=== PATIENT | female | born 1950 | race Caucasian/White ===

== ENCOUNTER 2020-06-06 08:31 | Outpatient (CLI) | payer MEDICARE, SELFPAY ==
--- NOTE | 2020-06-06 08:39 | MM_ITS ---
WS: [id number] BILATERAL DIGITAL SCREENING MAMMOGRAM WITH CAD CLINICAL INFORMATION: SCREENING HISTORY: Screening mammogram. Bilateral breast soreness worse in the right COMPARISON: December 11, 2016 TECHNIQUE: Bilateral CC and MLO. FINDINGS: The breast are composed of extremely dense tissue, which can limit the detection of small underlying mass lesions. Partially obscured ovoid densities left breast may represent small cysts but technicall y indeterminate. These are posterior depth approximately 3:00 position and inferior medial quadrant. Ovoid densities measure 10 to 11 mm. RECOMMEND FURTHER EVALUATION LEFT BREAST WITH SPOT COMPRESSION VIEWS AND ULTRASOUND LEFT BREAST. A few punctate calcifications. Stable clustered calcifications left breast. Unremarkable right breas t. MM/[place] [id number] IMPRESSION: BI-RADS: 0-Incomplete: Need additional imaging evaluation FOLLOW UP: Need Additional Imaging
== END 2020-06-06 08:32 | disposition home or self-care (01) ==
LOC: RADSHAW 08:37
PROVIDERS: PCP Internal Medicine; Visit Provider Internal Medicine
DX: Z12.31 Encounter for screening mammogram for malignant neoplasm of breast (principal); R92.1 Mammographic calcification found on diagnostic imaging of breast
CPT/HCPCS: 77067

== ENCOUNTER 2020-07-06 09:36 | Outpatient (CLI) | payer MEDICARE, SELFPAY ==
--- NOTE | 2020-07-06 09:40 | US_ITS ---
WS: [id number] LEFT DIGITAL MAMMOGRAPHY WITH CAD CLINICAL INFORMATION: INCONCLUSIVE MAMMOGRAM COMPARISON: June 06, 2020 TECHNIQUE: 5 views of the left breast were obtained. FINDINGS: The left breast is composed of extremely dense tissue, which can limit the detection of small underly ing mass lesions. Again seen are partially obscured ovoid densities posterior depth left breast and i nferomedial quadrant. These measure 10 to 11 mm. Ultrasound is pending. Stable punctate and clustered calcifications. ULTRASOUND BREAST LEFT TECHNIQUE: Ultrasound left breast focused area of concern. CLINICAL INFORMATION: INCONCLUSIVE MAMMOGRAM COMPARISON: None. FINDINGS: Ultrasound left breast at the 3:00 position, 4:00, 11:00. Multiple hypoechoic complex cystic lesions the largest at the 11:00 position measuring 1.2 x 0.6 cm. A few internal septations in the 11:00 lesion. Additional smaller hypoechoic complex cysts at the 3:0 0 position measuring 5 to 7 mm. Additional hypoechoic lesion likely a complex cyst measuring 7.8 x 6.7 mm at the 3 to 4:00 position w ith internal echoes. FINDINGS ARE PROBABLY BENIGN AND RECOMMEND 6 MONTH FOLLOW-UP LEFT BREAST ULTRASOUND TO CONFIRM STAHERMINIO GONZALEZ. US/US breast LT limited* [id number] IMPRESSION: BI-RADS: 3-Probably Benign FOLLOW UP: 6 Month Follow-up
== END 2020-07-06 09:37 | disposition home or self-care (01) ==
LOC: RADSHAW 09:38
PROVIDERS: PCP Internal Medicine; Visit Provider Internal Medicine
DX: R92.2 Inconclusive mammogram (principal)
CPT/HCPCS: 76642; 77065

== ENCOUNTER 2022-03-12 13:32 | Outpatient (CLI) | payer MEDICARE, SELFPAY ==
--- NOTE | 2022-03-12 13:44 | MM_ITS ---
WS: [id number] BILATERAL 3D TOMOSYNTHESIS DIGITAL SCREENING MAMMOGRAPHY WITH CAD CLINICAL INFORMATION: SCREENING HISTORY: Screening mammogram. Six-month follow-up was recommended 2019. No imaging since 0 COMPARISON: June 06, 2020 and 07/06/20 TECHNIQUE: Bilateral CC and MLO views. FINDINGS: The breasts are composed of heterogeneous fibroglandular density tissue, which can limit the detectio n of small underlying mass lesions. Previously described ovoid nodular densities LEFT breast appear s imilar in appearance compared to previous. No new suspicious abnormalities. Similar-appearing punctat e and clustered calcifications. Recommend ultrasound LEFT breast to confirm stability of the previous ly described complex cystic and hypoechoic lesions MM/[place] [id number] IMPRESSION: BI-RADS: 0-Incomplete: Need additional imaging evaluation FOLLOW UP: Need Additional Imaging Recommend LEFT breast ultrasound.
== END 2022-03-12 13:33 | disposition home or self-care (01) ==
LOC: RAD 13:34
PROVIDERS: PCP Internal Medicine; Visit Provider Internal Medicine
DX: Z12.31 Encounter for screening mammogram for malignant neoplasm of breast (principal)
CPT/HCPCS: 77063; 77067

== ENCOUNTER 2022-04-25 15:24 | Outpatient (CLI) | payer MEDICARE, SELFPAY ==
--- NOTE | 2022-04-25 15:35 | US_ITS ---
WS: [id number] ULTRASOUND BREAST LEFT TECHNIQUE: Ultrasound left breast focused area of concern. CLINICAL INFORMATION: ABNORMAL MAMMO (US ONLY) COMPARISON: Ultrasound July 06 2020 FINDINGS: Again seen are multiple complex hypoechoic cystic lesions the largest 1100 position today measuring 5 .9 x 4.1 x 6.8 mm. Additional slightly complex cyst at 12:00 position measuring 3.7 x 2.4 x 4.8 mm wi th one or 2 septations. Additional 3 x 5 mm cyst at the 3:00 position. Complex lesion with internal echogenicity at the 3:00 position 1 cm from the nipple measuring 4.5 x 5 .6 x 0.7 mm. This appears similar to 2019 but technically indeterminate. Recommend 6 month follow-up with attention to this lesion. Incidental simple cyst at the 3:00 position. This measures 7 x 8 mm. Incidental ductal ectasia 3:00 p osition subareolar. No intraductal lesions. US/US breast LT limited* [id number] IMPRESSION: BI-RADS 3 probably benign FOLLOW UP: Recommend 6 month follow-up with particular attention to the complex lesion with internal echogenicity 3:00 position 1 cm from the nipple measurin g 4.5 x 5.6 x 0.7 mm. This likely represents a complex cyst but technically ind eterminate. Recommend 6 month follow-up ultrasound LEFT breast to confirm stabi lity.
== END 2022-04-25 15:25 | disposition home or self-care (01) ==
PROVIDERS: PCP Internal Medicine; Visit Provider Internal Medicine
DX: R92.8 Other abnormal and inconclusive findings on diagnostic imaging of breast (principal)
CPT/HCPCS: 76642

== ENCOUNTER 2022-06-28 06:04 | Emergency (ER) | payer MEDICARE, SELFPAY ==
[2022-06-28 06:06] VITALS: BP 142/91; PULSE 85; RESP 16; TEMP 36.6; O2SAT 97; BMI 28.2
--- NOTE | 2022-06-28 06:26 | ED_ITS ---
HPI - Fall General: Chief Complaint: Fall Stated Complaint: fall Time Seen by Provider: 06/28/22 06:08 Source: patient Mode of arrival: ambulatory History of Present Illness: 71-year-old female presents emergency room complaining of low back pain. States she slipped and fell lightly over 4 days ago and did not seem to bother her too bad and then she twisted wrong yesterday and pain became more severe. She has not had any hematuria up to this point no lightheadedness or dizziness she refers the pain to the left paraspinal muscles mid lumbar region. No fever sweats chills no dysuria urgency or frequency. MD complaint: fall Onset (ago): day(s) (4) Fall from: standing Place fall occurred: other ([place]) Loss of consciousness: None Prolonged down time: no Symptoms prior to fall: none Context: tripped/slipped Location of injury: back Quality: sharp Associated symptoms-after fall: Reports difficulty walking; Denies abdominal pain, chest pain, confusion, headache(s), hematuria, lightheadedness, neck pain, numbness, short of breath, vertigo or weakness Review of Systems Const: Denies: fever(s), chills, body aches, change in appetite, fatigue or malaise ENMT: Denies: throat pain, ear or mastoid pain, nasal discharge or nasal congestion Card: Denies: chest pain or lightheadedness Resp: Denies: dyspnea, productive cough or non-productive cough GI: Denies: abdominal pain, nausea or vomiting : Denies: flank pain, difficulty voiding, dysuria, urinary frequency, urinary urgency or hematuria Musc: Reports: back pain; Denies: neck pain Skin/Breast: Denies: rash or pruritus Neuro: Reports: difficulty walking; Denies: headache(s), vertigo or confusion PFSH ED PFSH: Medical History (Updated 06/28/22 @ 07:49 by Bala Medellin DO) No significant past medical history Surgical History (Updated 06/28/22 @ 06:50 by Bala Medellin DO) No pertinent past surgical history Social History (Updated 06/28/22 @ 06:50 by Bala Medeliln DO) Smoking and tobacco status: never smoked Alcohol intake: never Physical Exam Const: GENERAL APPEARANCE: cooperative and comfortable ORIENTATION/CONSCIOUSNESS: Yes awake, Yes oriented to person, Yes oriented to place and Yes oriented to time HENMT: COMMON NORMALS: normocephalic, atraumatic and hearing grossly normal bilaterally HEAD & SCALP: normocephalic and atraumatic Resp: COMMON NORMALS: normal respiratory effort, No retractions, No use of accessory muscles and clear to auscultation bilaterally AUSCULTATION: clear to auscultation bilaterally Cardio: COMMON NORMALS: regular rate, regular rhythm and No murmurs present (Cardio) RATE: regular rate RHYTHM: regular rhythm GI: COMMON NORMALS: Soft to palpation and No hepatosplenomegaly present AUSCULTATION: Yes normoactive bowel sounds PALPATION: Yes Soft to palpation, No Tenderness to palpation present (GI), No Guarding due to palpation present (GI) and Yes No hepatosplenomegaly present : COMMON NORMALS: Yes no CVA tenderness BLADDER/KIDNEY EXAM: Yes no CVA tenderness Back/Pelvis: COMMON NORMALS: no CVA tenderness OTHER: Tenderness left paraspinal muscles no ecchymosis no abrasions no tenderness at the CVA bilaterally. Extremity: COMMON NORMALS: normal to inspection, capillary refill normal, no clubbing, cyanosis or edema, no calf tenderness and no pedal edema Neuro: SENSORIUM/ORIENTATION: Yes oriented to person, Yes oriented to place and Yes oriented to time Skin: COMMON NORMALS: no rashes or lesions noted GENERAL SKIN EXAM: no rashes or lesions noted Course Vital Signs: Vital signs: Vital Signs Temperature 97.9 F 06/28/22 06:06 Pulse Rate 82 06/28/22 08:00 Respiratory Rate 17 06/28/22 06:30 Blood Pressure 122/74 06/28/22 08:00 Pulse Oximetry 98 06/28/22 08:00 Oxygen Delivery Me thod 06/28/22 06:29 MDM - Fall Medical Decision Making Labs and imaging reviewed note UA is negative hemoglobin is good exam treat for musculoskeletal low back pain. No sign of renal injury based on no evidence of hematuria and normal kidney function follow-up with primary care as needed she is tender more along the paraspinal muscles in the lower lumbar region Medical Records I reviewed the patient's medical records. Lab Data I reviewed the patient's lab results. : 06/28/22 06:30 06/28/22 06:30 Radiology Impressions Lumbar Spine X-Ray 06/28/22 06:33 IMPRESSION: 1. No acute injury. 2. Degenerative changes of the lumbar spine. Laboratory Results WBC 6.7 10^3/uL (4.0-10.0) 06/28/22 06:30 RBC 4.72 10^6/uL (4.1-5.3) 06/28/22 06:30 Hgb 13.4 g/dL (11.5-15.3) 06/28/22 06:30 Hct 41.5 % (37.0-47.0) 06/28/22 06:30 MCV 87.9 fl (81-99) 06/28/22 06:30 MCH 28.4 pg (28.0-34.0) 06/28/22 06:30 MCHC 32.3 g/dL (30.0-36.0) 06/28/22 06:30 RDW 13.9 % (12.1-15.1) 06/28/22 06:30 Plt Count 220 10^3/cmm (130-400) 06/28/22 06:30 MPV 9.2 fL (7.4-10.4) 06/28/22 06:30 Neut % (Auto) 63.1 % 06/28/22 06:30 Lymph % (Auto) 25.8 % 06/28/22 06:30 [place] % (Auto) 7.6 % 06/28/22 06:30 Eos % (Auto) 2.7 % 06/28/22 06:30 Baso % (Auto) 0.4 % 06/28/22 06:30 Neut # (Auto) 4.23 10^3/uL (1.8-7.7) 06/28/22 06:30 Lymph # (Auto) 1.7 10^3/uL (0.8-4.8) 06/28/22 06:30 [place] # (Auto) 0.5 10^3/uL (0.2-0.9) 06/28/22 06:30 Eos # (Auto) 0.2 10^3/uL (0.0-0.8) 06/28/22 06:30 Baso # (Auto) 0.0 10^3/uL (0.0-0.1) 06/28/22 06:30 Nucleated RBC % (auto) 0 % 06/28/22 06:30 Nucleated RBCs # 0.0 /100WBC 06/28/22 06:30 Sodium 138 mmol/L (136-145) 06/28/22 06:30 Potassium 3.8 mmol/L (3.5-5.1) 06/28/22 06:30 Chloride 102 mmol/L (98-107) 06/28/22 06:30 Carbon Dioxide 24 mmol/L (22-29) 06/28/22 06:30 Anion Gap 15.8 (5-19) 06/28/22 06:30 BUN 13 mg/dL (8-23) 06/28/22 06:30 Creatinine 0.9 mg/dL (0.5-0.9) 06/28/22 06:30 GFR Calculation 62.1 mL/min (90-130) L 06/28/22 06:30 Glucose 124 mg/dL (65-115) H 06/28/22 06:30 Calculated Osmolality 288 mOsm/kg (285-295) 06/28/22 06:30 Calcium 9.9 mg/dL (8.5-10.5) 06/28/22 06:30 Total Bilirubin 0.4 mg/dL (0.15-1.2) 06/28/22 06:30 AST 17 U/L (0-32) 06/28/22 06:30 ALT 20 U/L (0-33) 06/28/22 06:30 Alkaline Phosphatase 80 U/L (35-105) 06/28/22 06:30 Total Protein 7.3 g/dL (6.6-8.7) 06/28/22 06:30 Albumin 4.5 g/dL (3.5-5.2) 06/28/22 06:30 Globulin 2.8 g/dL (1.3-4.6) 06/28/22 06:30 Urine Color Yellow (Yellow) 06/28/22 07:34 Urine Appearance Clear (CLEAR) 06/28/22 07:34 Urine pH 5 (5-7) 06/28/22 07:34 Ur Specific [place] 1.015 (1.005-1.030) 06/28/22 07:34 Urine Protein Neg (Negative) 06/28/22 07:34 Urine Glucose (UA) Norm (Normal) 06/28/22 07:34 Urine Ketones Negative (Negative) 06/28/22 07:34 Urine Blood Neg (Negative) 06/28/22 07:34 Urine Nitrate Negative (Negative) 06/28/22 07:34 Urine Bilirubin Neg (Negative) 06/28/22 07:34 Urine Urobilinogen Neg mg/dL (Negative) 06/28/22 07:34 Ur Leukocyte Esterase Negative (Negative) 06/28/22 07:34 Discharge Plan Discharge Patient Disposition: Home Clinical Impression: Lumbar back pain, Fall Condition: Stable Prescriptions: New prednisone 20 mg tablet 20 mg PO TID Qty: 15 0RF Rx Instructions: 1 p.o. 3 times daily x3 days, 1 p.o. twice daily x2 days, 1 p.o. daily x2 days diclofenac sodium 75 mg tablet,delayed release (DR/EC) 75 mg PO Q12H PRN (Reason: pain) Qty: 20 0RF tizanidine 4 mg capsule 4 mg PO Q6H PRN (Reason: muscle spasticity) Qty: 20 0RF Rx Instructions: do not exceed 3 doses per 24 hrs Discharge Orders: Discharge ED (Routine); Ordered 06/28/22 Ordered By: Bala Medellin Referrals: Thuan Talley DO [Primary Care Provider] - Discharge Diet: Usual diet Discharge Activity: Resume usual activity Patient Instructions: Opioid Safety, Pain Management Activity Restrictions/Additional Instructions: Use prescribed medications as needed for relief of symptoms. Start prednisone taper tomorrow. If not improving follow-up with your primary care physician. 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
[2022-06-28 06:29] VITALS: BP 163/85; PULSE 76; RESP 17; O2SAT 99
[2022-06-28 06:30] VITALS: RESP 17; O2SAT 99
[2022-06-28] MEDS: ondansetron 2 mg/ML SDV 2 mL 4 MG IVP (06:30)
[2022-06-28] MEDS: morphine 4 mg/mL SDV 1 mL IVP (06:30)
[2022-06-28] MEDS: ketorolac 30 mg/mL INJ IVP (06:30)
--- NOTE | 2022-06-28 06:33 | XRR_ITS ---
PROCEDURE INFORMATION: Exam: XR Lumbosacral Spine Exam date and time: 06/28/2022 6:53 AM Age: 71 years old Clinical indication: Injury or trauma; Fall; Blunt trauma (contusions or hematomas) TECHNIQUE: Imaging protocol: Radiologic exam of the lumbosacral spine. Views: 2 or 3 views. COMPARISON: [place] [id number] 07/06/2020 9:59 AM FINDINGS: Bones/joints: No spine curvature seen. The normal lumbar lordosis is maintained, with grade 1 anterolisthesis of L4. No fracture identified. Vertebral body heights are well preserved. There is multilevel degenerative changes, manifested by intervertebral disc space narrowing, endplate osteophytes and facet joint arthrosis. Soft tissues: Unremarkable. XR/XR lumbar spine 2-3V* [id number] IMPRESSION: 1. No acute injury. 2. Degenerative changes of the lumbar spine.
[2022-06-28 06:39] LABS: Basophils % 0.4 %; Eosinophils # 0.2 10^3/uL (0.0-0.8); Eosinophils % 2.7 %; Hematocrit 41.5 % (37.0-47.0); Hemoglobin 13.4 g/dL (11.5-15.3); Lymphocytes # 1.7 10^3/uL (0.8-4.8); Lymphocytes % 25.8 %; Mean Corpuscular HGB Conc 32.3 g/dL (30.0-36.0); Mean Corpuscular Hemoglobin 28.4 pg (28.0-34.0); Mean Corpuscular Volume 87.9 fl (81-99); Mean Platelet Volume 9.2 fL (7.4-10.4); Monocytes # 0.5 10^3/uL (0.2-0.9); Monocytes % 7.6 %; Neutrophils # 4.23 10^3/uL (1.8-7.7); Neutrophils % 63.1 %; Nucleated Red Blood Cells % 0 %; Platelet Count 220 10^3/cmm (130-400); Red Blood Count 4.72 10^6/uL (4.1-5.3); Red Cell Distribution Width 13.9 % (12.1-15.1); White Blood Count 6.7 10^3/uL (4.0-10.0)
[2022-06-28 07:00] LABS: Alanine Aminotransferase 20 U/L (0-33); Albumin Level 4.5 g/dL (3.5-5.2); Alkaline Phosphatase 80 U/L (35-105); Anion Gap 15.8 (5-19); Aspartate Amino Transferase 17 U/L (0-32); Blood Urea Nitrogen 13 mg/dL (8-23); Calcium 9.9 mg/dL (8.5-10.5); Carbon Dioxide 24 mmol/L (22-29); Chloride 102 mmol/L (98-107); Globulin 2.8 g/dL (1.3-4.6); Glomerular Filtration Rate 62.1 mL/min (90-130); Glucose 124 mg/dL (65-115); Osmolality Calculated 288 mOsm/kg (285-295); Potassium 3.8 mmol/L (3.5-5.1); Sodium 138 mmol/L (136-145); Total Bilirubin 0.4 mg/dL (0.15-1.2); Total Protein 7.3 g/dL (6.6-8.7)
[2022-06-28 07:40] LABS: Add Urine Microscopic? NO; Charge for UA Resulting for Rev
[2022-06-28 07:43] LABS: Bilirubin Urine Neg (Negative); Blood Urine Neg (Negative); Glucose Urine UA Norm (Normal); Ketones Urine Negative (Negative); Leukocyte Esterase Urine Negative (Negative); Nitrate Urine Negative (Negative); Protein Urine Neg (Negative); Specific Gravity, Urine 1.015 (1.005-1.030); Urine Appearance Clear (CLEAR); Urine Color Yellow (Yellow); Urobilinogen Urine Neg (Negative); pH Urine 5 (5-7)
[2022-06-28 08:00] VITALS: BP 122/74; PULSE 82; O2SAT 98
== END 2022-06-28 08:01 | disposition home or self-care (01) ==
PROVIDERS: Emergency Provider Family Medicine; PCP Internal Medicine
DX: M54.50 Low back pain, unspecified (principal); W01.0XXA Fall on same level from slipping, tripping and stumbling without subsequent striking against object, initial encounter
CPT/HCPCS: 72100; 80053; 81003; 85025; 96374; 96375; 99284; J1885; J2270; J2405

== ENCOUNTER 2022-06-29 16:09 | Emergency (ER) | payer MEDICARE, SELFPAY ==
[2022-06-29 16:16] VITALS: BP 157/90; PULSE 89; RESP 16; TEMP 37.4; O2SAT 96; BMI 28.2
--- NOTE | 2022-06-29 17:33 | ED_ITS ---
HPI - GI Bleed General: Chief complaint: GI Bleed Stated complaint: rectal bleeding Time Seen by Provider: 06/29/22 17:33 History of Present Illness: Ms. Gao is a 71-year-old lady without significant past medical history presents to the emergency department due to concern for bright red blood per rectum. She reports falling a number of days ago primarily landing on her right side and flank. She was not initially evaluated however had x-rays performed yesterday when her pain worsened. This morning she went to urinate and noticed some blood on the tissue when she wiped though does not think this was from her urine. She does not recall straining to defecate and did not have pain associated with this. She subsequently had a normal bowel movement. Had a colonoscopy approximately 4 years ago which was reportedly unremarkable. No history of similar. Abdominal pain/flank pain continues. No other specific changes in health, exacerbating, or alleviating factors identified. Onset (ago): day(s) Severity: moderate Exacerbating factors: movement Associated symptoms: Reports abdominal pain; Denies easy bruising, epistaxis, other bleeding, syncope or vomiting Review of Systems General: Reports: 10 or more systems reviewed and unremarkable except in HPI and below ENMT: Denies: epistaxis Card: Denies: syncope GI: Reports: abdominal pain; Denies: vomiting Laureano/Lymph: Denies: easy bruising [facility] ED PFSH: Medical History No significant past medical history Surgical History No pertinent past surgical history Social History Smoking and tobacco status: never smoked Alcohol intake: never Physical Exam Const: COMMON NORMALS: alert GENERAL APPEARANCE: cooperative and well developed HENMT: COMMON NORMALS: normocephalic and atraumatic HEAD & SCALP: normocephalic and atraumatic Eye: COMMON NORMALS: conjunctivae normal CONJUNCTIVA: Yes conjunctivae normal SCLERA: sclerae normal Neck/C-Spine: COMMON NORMALS: supple GENERAL: Yes trachea midline Resp: COMMON NORMALS: clear to auscultation bilaterally EFFORT & INSPECTION: Yes able to speak in complete sentences AUSCULTATION: clear to auscultation bilaterally Cardio: COMMON NORMALS: regular rate and regular rhythm RATE: regular rate RHYTHM: regular rhythm GI: COMMON NORMALS: Soft to palpation PALPATION: Yes Soft to palpation and No Tenderness to palpation present (GI) Extremity: GENERAL: Yes normal exam except as noted and No edema Neuro: COMMON NORMALS: moves all extremities SENSORIUM/ORIENTATION: Yes alert and No Orientation impaired Psych: COMMON NORMALS: mental status grossly normal and Normal thought process present THOUGHT PROCESS: Normal thought process present Course Vital Signs: Vital signs: Vital Signs Temperature 99.4 F 06/29/22 16:16 Pulse Rate 77 06/29/22 20:05 Respiratory Rate 18 06/29/22 20:05 Blood Pressure 148/87 06/29/22 20:05 Pulse Oximetry 92 06/29/22 20:05 Oxygen Delivery Me thod 06/29/22 18:29 MDM - GI Bleed Medical Decision Making 71-year-old lady presenting after fall with concern over 1 episode of rectal bleeding. Vitals are satisfactory. Hemoglobin normal. No significant metabolic abnormality. CT with right L1 and L2 transverse process fractures. No other acute pathology identified to explain symptoms. Rectal exam performed with gate attendant present. Guaiac negative with hemorrhoids present. Satisfactory for outpatient management. Return precautions and follow-up plan discussed. Medical Records I reviewed the patient's medical records. Lab Data I reviewed the patient's lab results. : 06/29/22 18:05 06/29/22 18:05 Radiology Impressions Abdomen/Pelvis CT 06/29/22 17:52 IMPRESSION: 1. Right L1 and L2 transverse process fractures. 2. Hepatic steatosis. 3. Liver somewhat enlarged. 4. Right kidney cyst, negative for follow-up advised. 5. Prominent fluid in the small bowel without dilation may reflect an enteritis. COMMENTS: Consistent with the [place] [employer]'s Incidental Findings Committee white paper (J Am Shawanda Radiol 2018): Any incidental renal lesion less than 1 cm or classified as too small to characterize, or any incidental cystic renal lesion characterized as simple-appearing, is likely benign. No follow-up imaging is recommended for these lesions per consensus recommendations based on imaging criteria. Laboratory Results WBC 7.2 10^3/uL (4.0-10.0) 06/29/22 18:05 RBC 4.81 10^6/uL (4.1-5.3) 06/29/22 18:05 Hgb 13.5 g/dL (11.5-15.3) 06/29/22 18:05 Hct 41.5 % (37.0-47.0) 06/29/22 18:05 MCV 86.3 fl (81-99) 06/29/22 18:05 MCH 28.1 pg (28.0-34.0) 06/29/22 18:05 MCHC 32.5 g/dL (30.0-36.0) 06/29/22 18:05 RDW 13.8 % (12.1-15.1) 06/29/22 18:05 Plt Count 246 10^3/cmm (130-400) 06/29/22 18:05 MPV 9.1 fL (7.4-10.4) 06/29/22 18:05 Neut % (Auto) 89.7 % 06/29/22 18:05 Lymph % (Auto) 8.5 % 06/29/22 18:05 [place] % (Auto) 1.5 % 06/29/22 18:05 Eos % (Auto) 0.0 % 06/29/22 18:05 Baso % (Auto) 0.0 % 06/29/22 18:05 Neut # (Auto) 6.42 10^3/uL (1.8-7.7) 06/29/22 18:05 Lymph # (Auto) 0.6 10^3/uL (0.8-4.8) L 06/29/22 18:05 [place] # (Auto) 0.1 10^3/uL (0.2-0.9) L 06/29/22 18:05 Eos # (Auto) 0.0 10^3/uL (0.0-0.8) 06/29/22 18:05 Baso # (Auto) 0.0 10^3/uL (0.0-0.1) 06/29/22 18:05 Nucleated RBC % (auto) 0 % 06/29/22 18:05 Nucleated RBCs # 0.0 /100WBC 06/29/22 18:05 PT 12.90 SECONDS (12.1-14.9) 06/29/22 18:05 INR 0.94 (0.8-1.2) 06/29/22 18:05 Sodium 140 mmol/L (136-145) 06/29/22 18:05 Potassium 4.6 mmol/L (3.5-5.1) 06/29/22 18:05 Chloride 105 mmol/L (98-107) 06/29/22 18:05 Carbon Dioxide 24 mmol/L (22-29) 06/29/22 18:05 Anion Gap 15.6 (5-19) 06/29/22 18:05 BUN 13 mg/dL (8-23) 06/29/22 18:05 Creatinine 0.7 mg/dL (0.5-0.9) 06/29/22 18:05 GFR Calculation 83.0 mL/min (90-130) L 06/29/22 18:05 Glucose 129 mg/dL (65-115) H 06/29/22 18:05 Calculated Osmolality 292 mOsm/kg (285-295) 06/29/22 18:05 Calcium 10.3 mg/dL (8.5-10.5) 06/29/22 18:05 Total Bilirubin 0.3 mg/dL (0.15-1.2) 06/29/22 18:05 AST 19 U/L (0-32) 06/29/22 18:05 ALT 19 U/L (0-33) 06/29/22 18:05 Alkaline Phosphatase 79 U/L (35-105) 06/29/22 18:05 Total Protein 7.4 g/dL (6.6-8.7) 06/29/22 18:05 Albumin 5.0 g/dL (3.5-5.2) 06/29/22 18:05 Globulin 2.4 g/dL (1.3-4.6) 06/29/22 18:05 Discharge Plan Discharge Patient Disposition: Home Clinical Impression: BRBPR (bright red blood per rectum), Fracture of transverse process of lumbar vertebra Condition: Stable Prescriptions: New oxycodone 5 mg tablet 5 mg PO Q4H PRN (Reason: pain) Qty: 10 0RF No Action prednisone 20 mg tablet 20 mg PO TID Qty: 15 0RF Rx Instructions: 1 p.o. 3 times daily x3 days, 1 p.o. twice daily x2 days, 1 p.o. daily x2 days diclofenac sodium 75 mg tablet,delayed release (DR/EC) 75 mg PO Q12H PRN (Reason: pain) Qty: 20 0RF tizanidine 4 mg capsule 4 mg PO Q6H PRN (Reason: muscle spasticity) Qty: 20 0RF Rx Instructions: do not exceed 3 doses per 24 hrs Discharge Orders: Discharge ED (Routine); Ordered 06/29/22 Ordered By: Kirk Pearl Referrals: Thuan Talley, [Primary Care Provider] - Discharge Diet: Usual diet Discharge Activity: Increase activity as tolerated Patient Instructions: Hemorrhoids (ED), Rectal Bleeding (ED), Transverse Process Fracture (ED) Activity Restrictions/Additional Instructions: Thank you for visiting the emergency department. You were seen and evaluated for blood per rectum. The exact cause of your symptoms is unclear though may be related to hemorrhoidal bleeding. You were noted to have transverse process fractures likely from your fall at the L1 and L2 level on the right. I will give you oxycodone for severe pain however please also use Tylenol and other treatments. Be cautious using ibuprofen given your bleeding per rectum. Please follow-up with your primary care provider. Return to the emergency department for worsening symptoms or anything else that you are concerned about a feel needs emergency department evaluation. Coding Level of Care Code ED Distributing Clerk for Vero Fwlisa Exam Comprehensive
[2022-06-29 17:36] VITALS: BP 147/91; PULSE 77; RESP 16; O2SAT 96
--- NOTE | 2022-06-29 17:52 | CTR_ITS ---
PROCEDURE INFORMATION: Exam: CT Abdomen And Pelvis With Contrast Exam date and time: 06/29/2022 6:43 PM Age: 71 years old Clinical indication: Injury or trauma; Fall; Blunt; Ruq; Injury date: 06/19/2022; Additional info: R flank pain after fall, brbpr TECHNIQUE: Imaging protocol: Computed tomography of the abdomen and pelvis with contrast. Radiation optimization: All CT scans at this facility use at least one of these dose optimization techniques: automated exposure control; mA and/or kV adjustment per patient size (includes targeted exams where dose is matched to clinical indication); or iterative reconstruction. Contrast material: OMNIPAQUE 350; Contrast volume: 80 ml; Contrast route: INTRAVENOUS (IV); COMPARISON: CR XR lumbar spine 2-3V* [id number] 06/28/2022 6:53 AM RADIATION DOSE METRICS: Total DLP (mGy-cm): 654.61 FINDINGS: Liver: Hepatic steatosis. Liver somewhat enlarged. Gallbladder and bile ducts: Normal. No calcified stones. No ductal dilation. Pancreas: Normal. No ductal dilation. Spleen: Normal. No splenomegaly. Adrenal glands: Normal. No mass. Kidneys and ureters: Right kidney cyst, negative for follow-up advised. Stomach and bowel: Prominent fluid in the small bowel without dilation may reflect an enteritis. Appendix: No evidence of appendicitis. Intraperitoneal space: Unremarkable. No free air. No significant fluid collection. Vasculature: Unremarkable. No abdominal aortic aneurysm. Lymph nodes: Unremarkable. No enlarged lymph nodes. Urinary bladder: Unremarkable as visualized. Reproductive: Unremarkable as visualized. Bones/joints: Right L1 and L2 transverse process fractures. Soft tissues: Unremarkable. CT/CT abdomen pelvis w con* [id number] IMPRESSION: 1. Right L1 and L2 transverse process fractures. 2. Hepatic steatosis. 3. Liver somewhat enlarged. 4. Right kidney cyst, negative for follow-up advised. 5. Prominent fluid in the small bowel without dilation may reflect an enteritis. COMMENTS: Consistent with the [place] [employer]'s Incidental Findings Committee white paper (J Am Shawanda Radiol 2018): Any incidental renal lesion less than 1 cm or classified as too small to characterize, or any incidental cystic renal lesion characterized as simple-appearing, is likely benign. No follow-up imaging is recommended for these lesions per consensus recommendations based on imaging criteria.
[2022-06-29 18:12] LABS: Hematocrit 41.5 % (37.0-47.0); Hemoglobin 13.5 g/dL (11.5-15.3); Lymphocytes # 0.6 10^3/uL (0.8-4.8); Lymphocytes % 8.5 %; Mean Corpuscular HGB Conc 32.5 g/dL (30.0-36.0); Mean Corpuscular Hemoglobin 28.1 pg (28.0-34.0); Mean Corpuscular Volume 86.3 fl (81-99); Mean Platelet Volume 9.1 fL (7.4-10.4); Monocytes # 0.1 10^3/uL (0.2-0.9); Monocytes % 1.5 %; Neutrophils # 6.42 10^3/uL (1.8-7.7); Neutrophils % 89.7 %; Nucleated Red Blood Cells % 0 %; Platelet Count 246 10^3/cmm (130-400); Red Blood Count 4.81 10^6/uL (4.1-5.3); Red Cell Distribution Width 13.8 % (12.1-15.1); White Blood Count 7.2 10^3/uL (4.0-10.0)
[2022-06-29 18:27] LABS: INR 0.94 (0.8-1.2)
[2022-06-29 18:29] VITALS: BP 137/83; PULSE 79; RESP 16; O2SAT 97
[2022-06-29 18:31] LABS: Alanine Aminotransferase 19 U/L (0-33); Alkaline Phosphatase 79 U/L (35-105); Anion Gap 15.6 (5-19); Aspartate Amino Transferase 19 U/L (0-32); Blood Urea Nitrogen 13 mg/dL (8-23); Calcium 10.3 mg/dL (8.5-10.5); Carbon Dioxide 24 mmol/L (22-29); Chloride 105 mmol/L (98-107); Creatinine Clr Calc Pharmacy 70.5462; Globulin 2.4 g/dL (1.3-4.6); Glucose 129 mg/dL (65-115); Osmolality Calculated 292 mOsm/kg (285-295); Potassium 4.6 mmol/L (3.5-5.1); Sodium 140 mmol/L (136-145); Total Bilirubin 0.3 mg/dL (0.15-1.2); Total Protein 7.4 g/dL (6.6-8.7)
[2022-06-29] MEDS: iohexol 350 mg/mL 100 mL Btl IV (18:46)
--- NOTE | 2022-06-29 19:04 | PC.NURSE ---
Report given to JOSSELIN Palacio
[2022-06-29 20:05] VITALS: BP 148/87; PULSE 77; RESP 18; O2SAT 92
== END 2022-06-29 20:07 | disposition home or self-care (01) ==
PROVIDERS: Emergency Medicine; Emergency Provider Emergency Medicine; PCP Internal Medicine
DX: K62.5 Hemorrhage of anus and rectum (principal); S32.018A Other fracture of first lumbar vertebra, initial encounter for closed fracture; S32.028A Other fracture of second lumbar vertebra, initial encounter for closed fracture; W19.XXXA Unspecified fall, initial encounter
CPT/HCPCS: 36415; 74177; 80053; 85025; 85610; 99285; Q9967

== ENCOUNTER 2022-11-27 03:45 | Emergency (ER) | payer MEDICARE, SELFPAY ==
--- NOTE | 2022-11-27 03:46 | ECG_ITS ---
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 [id number] f
--- NOTE | 2022-11-27 03:46 | XRR_ITS ---
PROCEDURE INFORMATION: Exam: XR Chest Exam date and time: 11/27/2022 3:53 AM Age: 72 years old Clinical indication: Pain; Chest pressure; Patient HX: C/O chest heaviness x 2 days. Hypertensive on monitor. ; Additional info: Cp TECHNIQUE: Imaging protocol: Radiologic exam of the chest. Views: 1 view. COMPARISON: CT abdomen pelvis w con* [id number] 06/29/2022 6:43 PM FINDINGS: Lungs: A 1 cm nodule projects over the upper right lung. Otherwise, no focal airspace consolidation. Pleural spaces: Unremarkable. No pleural effusion. No pneumothorax. Heart/Mediastinum: Unremarkable. No cardiomegaly. Bones/joints: Unremarkable. XR/XR chest 1V portable [id number] IMPRESSION: A 1 cm nodule projects over the upper right lung. Recommend nonemergent CT chest for further evaluation.
--- NOTE | 2022-11-27 03:51 | ED_ITS ---
HPI - Chest Pain General: Chief Complaint: Dizziness Stated Complaint: possible heart attack?, cold Time Seen by Provider: 11/27/22 03:46 Source: patient Mode of arrival: ambulatory Limitations: no limitations History of Present Illness: 72-year-old female states she has been having a weird sensation in her chest since midnight she is having hard time describing it she said she feels like she is having electrical impulses and feels cold she states she also feels very anxious she denies any pain currently denies any shortness of breath denies any nausea or diaphoresis. She denies any worsening proved factors no history of heart disease. Associated symptoms: Deny abdominal pain, dyspnea, fever(s), nausea or vomiting Review of Systems Const: Denies: fever(s), chills, body aches or change in appetite Eyes: Denies: blurry vision or eye discomfort ENMT: Denies: throat pain or dental pain Card: Reports: chest pain Resp: Denies: dyspnea GI: Denies: abdominal pain, nausea, vomiting or diarrhea : Denies: dysuria Musc: Denies: neck pain or back pain Skin/Breast: Denies: rash Neuro: Denies: headache(s) Psych: Denies: depression Laureano/Lymph: Denies: easy bruising All/Imm: Denies: urticaria PFSH ED PFSH: Medical History No significant past medical history Surgical History No pertinent past surgical history Social History Smoking and tobacco status: never smoked Alcohol intake: never Physical Exam Const: COMMON NORMALS: no acute distress, patient oriented x3 and healthy appearing HENMT: COMMON NORMALS: normocephalic and atraumatic HEAD & SCALP: normocephalic and atraumatic Eye: COMMON NORMALS: Equal, round and reactive pupils present and EOMs intact bilaterally PUPIL: Yes Equal, round and reactive pupils present Neck/C-Spine: COMMON NORMALS: full ROM and supple Chest: COMMONS NORMALS: normal inspection of the chest and normal palpation of entire chest wall Resp: COMMON NORMALS: normal respiratory effort, No retractions, No use of accessory muscles and clear to auscultation bilaterally AUSCULTATION: clear to auscultation bilaterally Cardio: COMMON NORMALS: regular rate, regular rhythm and No murmurs present (Cardio) RATE: regular rate RHYTHM: regular rhythm GI: COMMON NORMALS: Normal to inspection, nondistended, normoactive bowel sounds present, Soft to palpation, non-tender and no masses PALPATION: Yes Soft to palpation Extremity: COMMON NORMALS: normal to inspection and full ROM Neuro: COMMON NORMALS: patient oriented x3, moves all extremities and no focal motor deficits Psych: COMMON NORMALS: mental status grossly normal, Normal thought process present and cooperative THOUGHT PROCESS: Normal thought process present Skin: COMMON NORMALS: no rashes or lesions noted and no wounds GENERAL SKIN EXAM: no rashes or lesions noted Course Vital Signs: Vital signs: Vital Signs Temperature 98.6 F 11/27/22 03:55 Pulse Rate 70 11/27/22 06:10 Respiratory Rate 16 11/27/22 06:10 Blood Pressure 109/68 11/27/22 06:10 Pulse Oximetry 97 11/27/22 06:10 Oxygen Delivery Me thod 11/27/22 03:55 MDM - Chest Pain Medical Decision Making Patient presents for chest pain that is atypical in nature her initial and repeat troponin are normal x-rays normal she is no signs of acute coronary syndrome she is stable for discharge she is to follow-up with her PCP and return if worsening. Lab Data 11/27/22 03:55 11/27/22 03:55 Radiology Impressions Chest X-Ray 11/27/22 03:46 IMPRESSION: A 1 cm nodule projects over the upper right lung. Recommend nonemergent CT chest for further evaluation. Laboratory Results WBC 5.4 10^3/uL (4.0-10.0) 11/27/22 03:55 RBC 4.92 10^6/uL (4.1-5.3) 11/27/22 03:55 Hgb 13.5 g/dL (11.5-15.3) 11/27/22 03:55 Hct 42.0 % (37.0-47.0) 11/27/22 03:55 MCV 85.4 fl (81-99) 11/27/22 03:55 MCH 27.4 pg (28.0-34.0) L 11/27/22 03:55 MCHC 32.1 g/dL (30.0-36.0) 11/27/22 03:55 RDW 13.3 % (12.1-15.1) 11/27/22 03:55 Plt Count 214 10^3/cmm (130-400) 11/27/22 03:55 MPV 9.1 fL (7.4-10.4) 11/27/22 03:55 Neut % (Auto) 58.0 % 11/27/22 03:55 Lymph % (Auto) 29.1 % 11/27/22 03:55 [place] % (Auto) 9.5 % 11/27/22 03:55 Eos % (Auto) 3.0 % 11/27/22 03:55 Baso % (Auto) 0.4 % 11/27/22 03:55 Neut # (Auto) 3.11 10^3/uL (1.8-7.7) 11/27/22 03:55 Lymph # (Auto) 1.6 10^3/uL (0.8-4.8) 11/27/22 03:55 [place] # (Auto) 0.5 10^3/uL (0.2-0.9) 11/27/22 03:55 Eos # (Auto) 0.2 10^3/uL (0.0-0.8) 11/27/22 03:55 Baso # (Auto) 0.0 10^3/uL (0.0-0.1) 11/27/22 03:55 Nucleated RBC % (auto) 0 % 11/27/22 03:55 Nucleated RBCs # 0.0 /100WBC 11/27/22 03:55 PT 13.50 SECONDS (12.1-14.9) 11/27/22 03:55 INR 1.00 (0.8-1.2) 11/27/22 03:55 Sodium 136 mmol/L (136-145) 11/27/22 03:55 Potassium 3.7 mmol/L (3.5-5.1) 11/27/22 03:55 Chloride 100 mmol/L (98-107) 11/27/22 03:55 Carbon Dioxide 19 mmol/L (22-29) L 11/27/22 03:55 Anion Gap 20.7 (5-19) H 11/27/22 03:55 BUN 9 mg/dL (8-23) 11/27/22 03:55 Creatinine 0.8 mg/dL (0.5-0.9) 11/27/22 03:55 GFR Calculation 70.9 mL/min (90-130) L 11/27/22 03:55 Glucose 175 mg/dL (65-115) H 11/27/22 03:55 Calculated Osmolality 285 mOsm/kg (285-295) 11/27/22 03:55 Calcium 9.4 mg/dL (8.5-10.5) 11/27/22 03:55 Total Bilirubin 0.5 mg/dL (0.15-1.2) 11/27/22 03:55 AST 24 U/L (0-32) 11/27/22 03:55 ALT 22 U/L (0-33) 11/27/22 03:55 Alkaline Phosphatase 86 U/L (35-105) 11/27/22 03:55 Troponin T Baseline 6 ng/L (0-10) 11/27/22 03:55 Troponin T 120 Minute 6.00 ng/L (0-10) 11/27/22 05:32 Delta Troponin T 0 ABS# (0-10) 11/27/22 05:32 Total Protein 6.9 g/dL (6.6-8.7) 11/27/22 03:55 Albumin 4.5 g/dL (3.5-5.2) 11/27/22 03:55 Globulin 2.4 g/dL (1.3-4.6) 11/27/22 03:55 Lipase 37 U/L (13-60) 11/27/22 03:55 Discharge Plan Discharge Patient Disposition: Home Clinical Impression: Chest pain Condition: Stable Prescriptions: No Action oxycodone 5 mg tablet 5 mg PO Q4H PRN (Reason: pain) Qty: 10 0RF prednisone 20 mg tablet 20 mg PO TID Qty: 15 0RF Rx Instructions: 1 p.o. 3 times daily x3 days, 1 p.o. twice daily x2 days, 1 p.o. 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
[2022-11-27 03:53] VITALS: BMI 29.8
[2022-11-27 03:55] VITALS: BP 171/101; PULSE 77; RESP 18; TEMP 37; O2SAT 100
[2022-11-27] MEDS: aspirin 81 mg Chew Tablet 324 MG PO (03:58)
[2022-11-27] MEDS: LORazepam 2 mg/mL INJ 1 mL 1 MG IVP (03:59)
[2022-11-27 04:00] LABS: Basophils % 0.4 %; Eosinophils # 0.2 10^3/uL (0.0-0.8); Hemoglobin 13.5 g/dL (11.5-15.3); Lymphocytes # 1.6 10^3/uL (0.8-4.8); Lymphocytes % 29.1 %; Mean Corpuscular HGB Conc 32.1 g/dL (30.0-36.0); Mean Corpuscular Hemoglobin 27.4 pg (28.0-34.0); Mean Corpuscular Volume 85.4 fl (81-99); Mean Platelet Volume 9.1 fL (7.4-10.4); Monocytes # 0.5 10^3/uL (0.2-0.9); Monocytes % 9.5 %; Neutrophils # 3.11 10^3/uL (1.8-7.7); Nucleated Red Blood Cells % 0 %; Platelet Count 214 10^3/cmm (130-400); Red Blood Count 4.92 10^6/uL (4.1-5.3); Red Cell Distribution Width 13.3 % (12.1-15.1); White Blood Count 5.4 10^3/uL (4.0-10.0)
[2022-11-27 04:19] LABS: Troponin(5th) Baseline 6 ng/L (0-10)
[2022-11-27 04:21] LABS: Alanine Aminotransferase 22 U/L (0-33); Albumin Level 4.5 g/dL (3.5-5.2); Alkaline Phosphatase 86 U/L (35-105); Aspartate Amino Transferase 24 U/L (0-32); Blood Urea Nitrogen 9 mg/dL (8-23); Calcium 9.4 mg/dL (8.5-10.5); Carbon Dioxide 19 mmol/L (22-29); Chloride 100 mmol/L (98-107); Creatinine Clr Calc Pharmacy 71.4269; Globulin 2.4 g/dL (1.3-4.6); Glomerular Filtration Rate 70.9 mL/min (90-130); Glucose 175 mg/dL (65-115); Lipase 37 U/L (13-60); Osmolality Calculated 285 mOsm/kg (285-295); Sodium 136 mmol/L (136-145); Total Bilirubin 0.5 mg/dL (0.15-1.2); Total Protein 6.9 g/dL (6.6-8.7)
[2022-11-27 04:28] LABS: Anion Gap 20.7 (5-19); Potassium 3.7 mmol/L (3.5-5.1)
[2022-11-27 05:02] VITALS: BP 117/71; PULSE 67; RESP 18; O2SAT 94
[2022-11-27 05:36] VITALS: BP 120/82; PULSE 64; RESP 26; O2SAT 95
[2022-11-27 05:58] LABS: Troponin 5 2HR Delta 0 ABS# (0-10)
[2022-11-27 06:10] VITALS: BP 109/68; PULSE 70; RESP 16; O2SAT 97
== END 2022-11-27 06:11 | disposition home or self-care (01) ==
PROVIDERS: Emergency Provider Emergency Medicine; PCP Internal Medicine
DX: R07.9 Chest pain, unspecified (principal)
CPT/HCPCS: 71045; 80053; 83690; 84484; 85025; 85610; 93005; 96374; 99285; J2060

== ENCOUNTER 2025-04-05 09:50 | Outpatient (CLI) | payer MEDICARE, SELFPAY ==
--- NOTE | 2025-04-05 09:55 | MM_ITS ---
WS: [id number] BILATERAL 3D TOMOSYNTHESIS DIGITAL SCREENING MAMMOGRAPHY WITH CAD CLINICAL INFORMATION: SCREENING HISTORY: Screening mammogram. No current complaints. 6-month follow-up previously recommended in 2021 which patient did not return for. Patient returns today for screening mammogram COMPARISON: 2021 TECHNIQUE: Bilateral CC and MLO views. FINDINGS: The breasts are composed of heterogeneous fibroglandular density tissue, which can limit the detection of small underlying mass lesions. Incidental punctate and clustered calcifications. Increasing asymmetric density outer LEFT breast partially obscured with irregular margins measuring 1.3 cm. This is increased in size compared to previous. Recommend further evaluation with LEFT breast diagnostic mammography and ultrasound. Additional partially obscured nodular densities LEFT breast are otherwise similar in appearance MM/MM [facility] tomosynthesis [id number] IMPRESSION: DENSITY: The breasts are heterogeneously dense, which may obscure small masses. BI-RADS: 0 - Incomplete: Need additional imaging evaluation FOLLOW UP: Need Additional Imaging Recommend LEFT breast diagnostic mammography and ultrasound.
== END 2025-04-05 09:51 | disposition home or self-care (01) ==
LOC: RAD 09:51
PROVIDERS: PCP Family Medicine; Visit Provider Family Medicine
DX: Z12.31 Encounter for screening mammogram for malignant neoplasm of breast (principal); R92.323 Mammographic fibroglandular density, bilateral breasts; R92.1 Mammographic calcification found on diagnostic imaging of breast; N63.20 Unspecified lump in the left breast, unspecified quadrant
CPT/HCPCS: 77063; 77067

== ENCOUNTER 2025-04-26 12:01 | Outpatient (CLI) | payer MEDICARE, SELFPAY ==
--- NOTE | 2025-04-26 13:30 | MM_ITS ---
WS: [id number] LEFT 3D TOMOSYNTHESIS DIGITAL MAMMOGRAPHY WITH CAD CLINICAL INFORMATION: UNSPECIFIED LUMP HISTORY: Unspecified lump. Additional views. TECHNIQUE: 3 views of the left breast were obtained. FINDINGS: The left breast is composed of heterogeneous fibroglandular density tissue, which can limit the detection of small underlying mass lesions. Stable partially obscured 1.3 cm ovoid nodule outer LEFT breast. Ultrasound is pending. ULTRASOUND BREAST LEFT TECHNIQUE: Ultrasound left breast focused area of concern. CLINICAL INFORMATION: UNSPECIFIED LUMP FINDINGS: Ultrasound outer quadrant LEFT breast demonstrates a simple cyst in the area of concern measuring 1.0 x 0.9 x 1.0 cm at the 3 o'clock position. No other suspicious findings. MM/MM diag LT tomosynthesis [id number] IMPRESSION: DENSITY: The breasts are heterogeneously dense, which may obscure small masses. BI-RADS: 2 - Benign FOLLOW UP: 1 Year Follow-up Recommend return to annual screening mammography.
--- NOTE | 2025-04-26 14:00 | US_ITS ---
WS: [id number] LEFT 3D TOMOSYNTHESIS DIGITAL MAMMOGRAPHY WITH CAD CLINICAL INFORMATION: UNSPECIFIED LUMP HISTORY: Unspecified lump. Additional views. TECHNIQUE: 3 views of the left breast were obtained. FINDINGS: The left breast is composed of heterogeneous fibroglandular density tissue, which can limit the detection of small underlying mass lesions. Stable partially obscured 1.3 cm ovoid nodule outer LEFT breast. Ultrasound is pending. ULTRASOUND BREAST LEFT TECHNIQUE: Ultrasound left breast focused area of concern. CLINICAL INFORMATION: UNSPECIFIED LUMP FINDINGS: Ultrasound outer quadrant LEFT breast demonstrates a simple cyst in the area of concern measuring 1.0 x 0.9 x 1.0 cm at the 3 o'clock position. No other suspicious findings. US/US breast LT limited* [id number] IMPRESSION: DENSITY: The breasts are heterogeneously dense, which may obscure small masses. BI-RADS: 2 - Benign FOLLOW UP: 1 Year Follow-up Recommend return to annual screening mammography.
== END 2025-04-26 12:02 | disposition home or self-care (01) ==
LOC: RAD 12:02
PROVIDERS: PCP Family Medicine; Visit Provider Family Medicine
DX: N60.02 Solitary cyst of left breast (principal); R92.333 Mammographic heterogeneous density, bilateral breasts
CPT/HCPCS: 76642; 77061; G0279

== ENCOUNTER 2025-07-28 08:05 | Outpatient (CLI) | payer MEDICARE, SELFPAY ==
--- NOTE | 2025-07-28 08:10 | ECG_ITS ---
[facility] 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 Baseline heart rate was 86 beats per minute. Baseline blood pressure was 145/85 millimeters of mercury. Target heart rate was 148 beats per minute. Maximum heart rate achieved was 138, which was 93% of the target heart rate. Maximum blood pressure was 164/85 millimeters of mercury. Total exercise time was 2 minutes 13 seconds. Maximum METs achieved was 4.6, maximum VO2 was 16. The reason for ending the test was maximum effort achieved. The patient complained of shortness of breath during the stress test, which then resolved at the end of the test. ELECTROCARDIOGRAM: BASELINE: Showed sinus rhythm, normal axis, no significant ST-T changes at the baseline noted. EXERCISE: At the peak exercise level, no significant ST-T changes suggestive of ischemia noted. Frequent PVCs were noted RECOVERY: During the recovery period, heart rate dropped appropriately. No significant ST-T changes in the recovery suggestive of ischemia noted. CONCLUSION: 1. Exercise capacity poor. 2. Heart rate response was tachycardic. 3. Blood pressure response was appropriate. 4. Symptoms not suggestive of ischemia. 5. Electrocardiogram portion of the stress test was not suggestive of ischemia. 6. Nuclear scan will be documented separately. Please note that due to under achievement of METS and poor exercise capacity specificity and sensitivity of EKG portion of the stress test will be low Electronically Signed On 08-01-2025 22:42:14 CDT by IMTIAZ SOLITARIO [email or web address] [id number]
[2025-07-28 08:57] VITALS: BMI 25.8
[2025-07-28 08:59] VITALS: BP 164/72; PULSE 90
== END 2025-07-28 08:06 | disposition home or self-care (01) ==
LOC: CDL 08:08
PROVIDERS: PCP Family Medicine; Visit Provider Family Medicine
DX: R07.9 Chest pain, unspecified (principal)
CPT/HCPCS: 93017